=== PATIENT | male | born 1955 | race Caucasian/White ===

== ENCOUNTER 2017-06-29 17:16 | Emergency (ER) | payer MEDICAID ==
[~2017-06-29] VITALS: Ht 175.3 cm; Wt 77.0 kg
[2017-06-29 17:22] VITALS: BP 165/91
[2017-06-29] MEDS ORDERED: KETOROLAC 60MG/2ML VIAL IM ONE (19:00)
== END 2017-06-29 19:07 | disposition left against medical advice (07) ==
LOC: ER 17:22
DX: M54.5 Low back pain (principal); G89.29 Other chronic pain
CPT/HCPCS: 99281

== ENCOUNTER → 2018-02-04 | Day surgery (SDC) | payer MEDICAID ==
[~2018-02-04] VITALS: Ht 175.3 cm; Wt 77.1 kg
[~2018-02-04] MED LIST: ACETAMINOPHEN 325MG TABLET PO NR; ASPI-1159 PO; BALANCED SALT IRRIG SOLN 15ML ONE; CALC-1042 PO; CIPROFLOXACIN 0.3% OPHTH SOLN 2.5ML ONE; GENTAMICIN SULF 40MG/ML 2ML VIAL ONE; HYDROMORPHONE HCL/PF 2MG/ML CPJ IV PRN; IBUPROFEN 600MG TABLET PO NR; LACTATED RINGERS 1,000 ML IV SCH; LIDOCAINE HCL 2%/EPINEPHRINE 1:100,000 20 ML VIAL INFIL ONE; METHYLPREDNISOLONE SOD SUCC 40 MG/ML VIAL ONE; MIDAZOLAM HCL 2 MG/2 ML VIAL ONE; NEO/POLYMYX B SULF/DEXAMETH OPHTH OINT 3.5GM ONE; OFLOXACIN 0.3% OPHTH SOLN 5ML LEFTEYE ONE; ONDANSETRON HCL 4MG/2ML VIAL IV PRN; POVIDONE-IODINE 10% TOPICAL SOLN 240ML TOP ONE; SODIUM CHLORIDE 0.9% 1,000 ML IV ONE; TETRACAINE 0.5% OPHTH DROPS 4ML ONE; VITA1TAB20 PO
[2018-02-04 12:05] VITALS: BP 140/85
== END | disposition home or self-care (01) ==
LOC: OR 07:17
PROVIDERS: ATTEND Ophthalmology
DX: H11.002 Unspecified pterygium of left eye (principal); I10 Essential (primary) hypertension; E78.00 Pure hypercholesterolemia, unspecified; F10.10 Alcohol abuse, uncomplicated; G89.29 Other chronic pain; Z79.82 Long term (current) use of aspirin; Z79.899 Other long term (current) drug therapy; Z98.890 Other specified postprocedural states
CPT/HCPCS: 65420; 88304; J1580; J2250; J2920; J3490; J7120

== ENCOUNTER 2018-05-07 20:59 | Emergency (ER) | payer MEDICAID ==
[~2018-05-07] VITALS: Ht 170.2 cm; Wt 81.0 kg
[~2018-05-07 20:59] MED LIST changes: -ACETAMINOPHEN 325MG TABLET PO NR; -BALANCED SALT IRRIG SOLN 15ML ONE; -CIPROFLOXACIN 0.3% OPHTH SOLN 2.5ML ONE; -GENTAMICIN SULF 40MG/ML 2ML VIAL ONE; -HYDROMORPHONE HCL/PF 2MG/ML CPJ IV PRN; -IBUPROFEN 600MG TABLET PO NR; -LACTATED RINGERS 1,000 ML IV SCH; -LIDOCAINE HCL 2%/EPINEPHRINE 1:100,000 20 ML VIAL INFIL ONE; -METHYLPREDNISOLONE SOD SUCC 40 MG/ML VIAL ONE; -MIDAZOLAM HCL 2 MG/2 ML VIAL ONE; -NEO/POLYMYX B SULF/DEXAMETH OPHTH OINT 3.5GM ONE; -OFLOXACIN 0.3% OPHTH SOLN 5ML LEFTEYE ONE; -ONDANSETRON HCL 4MG/2ML VIAL IV PRN; -POVIDONE-IODINE 10% TOPICAL SOLN 240ML TOP ONE; -SODIUM CHLORIDE 0.9% 1,000 ML IV ONE; -TETRACAINE 0.5% OPHTH DROPS 4ML ONE
[2018-05-07 21:10] VITALS: BP 173/99
== END 2018-05-07 21:35 | disposition left against medical advice (07) ==
LOC: ER 21:13
DX: R51 Headache (principal); Z53.21 Procedure and treatment not carried out due to patient leaving prior to being seen by health care provider